=== PATIENT | female | born 1975 | race Caucasian/White ===

== ENCOUNTER → 2020-12-02 | Outpatient (CLI) | payer MEDICARE, OTHER ==
[~2020-12-02] MED LIST: ABILIFY10 MG PO; ALBUTEROL2.5 MG/3 M INH; ALLERGY RELIEF10 M1 PO; ALPHA LIPOIC A600 MG PO; BACTROBAN OINT22 GM EXT; BUDESONIDE-FO10.2 G1 INH; BUPRENORPHIN-N1 EACH SL; C COMPLEX PO; CEPHALEXIN500 M1 PO; DAILY MULTIPLE1 EAC1 PO; DOXYCYCLINE HY100 M2 PO; GABAPENTIN300 MG PO; LANTUS100 UNIT/1 SQ; LEVOTHYROXINE25 MC1 PO; LIPITOR40 MG PO; OMNICEF 300 MG300 MG PO; POTASSIUM PO; PROAIR HFA8.5 GM INH; SERTRALINE HCL100 MG PO; SYNTHROID200 MCG PO; TRULICITY0.75 MG/0. SQ; VENTOLIN HFA 66.7 GM INH; VITAMIN B PO; VITAMIN D PO; ZANAFLEX 4 MG TA4 MG PO; [UNRECOGNIZED DRUG - CODE] SQ
== END ==
LOC: ECHO 10:00 → NM 13:00
DX: R06.02 Shortness of breath (principal)
CPT/HCPCS: ECHO; 78452; 93017; 93306; A9502; J2785

== ENCOUNTER → 2020-12-03 | Outpatient (CLI) | payer MEDICARE, OTHER | LOC: NM 12:45 | DX: R06.02 Shortness of breath (principal) | CPT/HCPCS: A9502 ==

== ENCOUNTER → 2020-12-04 | Outpatient (CLI) | payer MEDICARE, OTHER | LOC: EXRD 14:39 | DX: M25.561 Pain in right knee (principal); M17.11 Unilateral primary osteoarthritis, right knee | CPT/HCPCS: 73564 ==

== ENCOUNTER → 2020-12-31 | Outpatient (CLI) | payer MEDICARE, OTHER | END | disposition home or self-care (01) | LOC: CATH 07:19 | DX: I25.119 Atherosclerotic heart disease of native coronary artery with unspecified angina pectoris (principal); I11.0 Hypertensive heart disease with heart failure; I50.9 Heart failure, unspecified; E11.9 Type 2 diabetes mellitus without complications; F17.210 Nicotine dependence, cigarettes, uncomplicated; J43.9 Emphysema, unspecified; R94.39 Abnormal result of other cardiovascular function study; K76.0 Fatty (change of) liver, not elsewhere classified; C53.9 Malignant neoplasm of cervix uteri, unspecified; F41.8 Other specified anxiety disorders; D64.9 Anemia, unspecified; M54.9 Dorsalgia, unspecified; J45.909 Unspecified asthma, uncomplicated; I82.4Z1 Acute embolism and thrombosis of unspecified deep veins of right distal lower extremity; I73.9 Peripheral vascular disease, unspecified; I21.9 Acute myocardial infarction, unspecified; M19.90 Unspecified osteoarthritis, unspecified site; G89.29 Other chronic pain; F41.0 Panic disorder [episodic paroxysmal anxiety]; Z20.822 Contact with and (suspected) exposure to COVID-19; Z79.4 Long term (current) use of insulin; Z79.899 Other long term (current) drug therapy; Z88.2 Allergy status to sulfonamides; Z80.9 Family history of malignant neoplasm, unspecified; Z83.3 Family history of diabetes mellitus; Z82.49 Family history of ischemic heart disease and other diseases of the circulatory system; Z83.6 Family history of other diseases of the respiratory system | CPT/HCPCS: 82962; 87635; 93005; 99152; 99153; C1769; C1894; J1644; J2250; J3010; J7030; Q9967 ==

== ENCOUNTER → 2021-04-13 | Outpatient (CLI) | payer MEDICARE, OTHER | LOC: KOH-I 08:43 | DX: M25.511 Pain in right shoulder (principal); R93.7 Abnormal findings on diagnostic imaging of other parts of musculoskeletal system | CPT/HCPCS: 73030 ==

== ENCOUNTER 2021-05-28 21:35 | Emergency (ER) | payer MEDICARE, OTHER ==
[~2021-05-28 21:35] MED LIST changes: -BACTROBAN OINT22 GM EXT; -CEPHALEXIN500 M1 PO
[2021-05-28 23:25] LABS: HEMOGLOBIN 13.9 gm/dl (12.3-15.3); RED BLOOD COUNT 4.41 M/UL (4.00-5.10); WHITE BLOOD COUNT 8.5 K/UL (4.5-11.0)
[2021-05-28 23:41] LABS: BUN/CREATININE RATIO 24 (0-10)
[2021-05-28] MEDS ORDERED: DOXYCYCLINE HY100 M2 PO (23:50)
[2021-05-28] MEDS ORDERED: CEPHALEXIN500 M1 PO (23:50)
[2021-05-28] MEDS ORDERED: BACTROBAN OINT22 GM EXT (23:50)
== END 2021-05-29 00:01 | disposition home or self-care (01) ==
LOC: ER1 21:35
PROVIDERS: Physician Assistant Medical
DX: L98.499 Non-pressure chronic ulcer of skin of other sites with unspecified severity (principal); F19.90 Other psychoactive substance use, unspecified, uncomplicated; E11.9 Type 2 diabetes mellitus without complications; J44.9 Chronic obstructive pulmonary disease, unspecified; E03.9 Hypothyroidism, unspecified; I50.9 Heart failure, unspecified; F17.210 Nicotine dependence, cigarettes, uncomplicated; Z88.2 Allergy status to sulfonamides; Z79.4 Long term (current) use of insulin
CPT/HCPCS: 80053; 83605; 85025; 87040; 87070; 87205; 99283; Q9967

== ENCOUNTER → 2021-06-26 | Outpatient (CLI) | payer MEDICARE, OTHER ==
[~2021-06-26] MED LIST changes: +BACTROBAN OINT22 GM EXT; +CEPHALEXIN500 M1 PO
[2021-06-26 15:32] LABS: HEMOGLOBIN 14.3 gm/dl (12.3-15.3); RED BLOOD COUNT 4.51 M/UL (4.00-5.10); WHITE BLOOD COUNT 6.7 K/UL (4.5-11.0)
[2021-06-26 16:10] LABS: BUN/CREATININE RATIO 12 (0-10)
== END ==
LOC: LAB 14:01
PROVIDERS: Physician Assistant
DX: M25.511 Pain in right shoulder (principal); I10 Essential (primary) hypertension; E11.42 Type 2 diabetes mellitus with diabetic polyneuropathy; E55.9 Vitamin D deficiency, unspecified; E78.5 Hyperlipidemia, unspecified; E03.9 Hypothyroidism, unspecified
CPT/HCPCS: 36415; 73030; 80053; 80061; 83036; 84439; 84443; 85025

== ENCOUNTER 2021-09-14 21:02 | Inpatient (IN) | payer MEDICARE, OTHER ==
[~2021-09-14] VITALS: Ht 170.2 cm; Wt 178.3 kg
[2021-09-14 21:21] LABS: HEMOGLOBIN 13.9 gm/dl (12.3-15.3); RED BLOOD COUNT 4.46 M/UL (4.00-5.10); WHITE BLOOD COUNT 5.3 K/UL (4.5-11.0)
[2021-09-14 22:19] LABS: BUN/CREATININE RATIO 17 (0-10)
[2021-09-15 01:21] LABS: ADENOVIRUS F 40/41 Not Detected (Negative); ASTROVIRUS Not Detected (Negative); CAMPYLOBACTER Not Detected (Negative); CLOSTRIDIUM DIFFICILE TOX A/B Not Detected (Negative); CRYPTOSPORIDIUM Not Detected (Negative); E.COLI 0157 Not Detected (Negative); ENTAMOEBA HISTOLYTICA Not Detected (Negative); ENTEROAGGREGATIVE E.COLI (EAEC Not Detected (Negative); ENTEROPATHOGENIC E.COLI (EPEC) Not Detected (Negative); ENTEROTOXIGENIC E.COLI (ETEC) Not Detected (Negative); GIARDIA LAMBLIA Not Detected (Negative); NOROVIRUS GI/GII Not Detected (Negative); PLESIOMONAS SHIGELLOIDES Not Detected (Negative); ROTOVIRUS A Not Detected (Negative); SALMONELLA Not Detected (Negative); SAPOVIRUS Not Detected (Negative); SHIG/ENTEROINVAS.ECOLI (EIEC) Not Detected (Negative); SHIGA-LIK TOX.PRO.E.COLI (STEC Not Detected (Negative); VIBRIO Not Detected (Negative); VIBRIO CHOLERAE Not Detected (Negative); YERSINIA ENTEROCOLITICA Not Detected (Negative)
[2021-09-15 05:43] LABS: HEMOGLOBIN 11.5 gm/dl (12.3-15.3); RED BLOOD COUNT 3.85 M/UL (4.00-5.10); WHITE BLOOD COUNT 5.4 K/UL (4.5-11.0)
[2021-09-15 09:27] LABS: ACINETOBACTER BAUMANNII Not Detected (Negative); CANDIDA ALBICANS Not Detected (Negative); CANDIDA KRUSEI Not Detected (Negative); CANDIDA TROPICALIS Not Detected (Negative); ENTEROCOCCUS Not Detected (Negative); HAEMOPHILUS INFLUENZAE Not Detected (Negative); KLEBSIELLA OXYTOCA Not Detected (Negative); KLEBSIELLA PNEUMONIAE Not Detected (Negative); KPC-CARBAPENEM-RESISTANCE GENE Not Detected (Negative); PROTEUS Not Detected (Negative); PSEUDOMONAS AERUGINOSA Not Detected (Negative); SERRATIA MARCESANS Not Detected (Negative); STAPHYLOCOCCUS Not Detected (Negative); STAPHYLOCOCCUS AUREUS Not Detected (Negative); STREP AGALACTIAE (GROUP B) Not Detected (Negative); STREP PYOGENES (GROUP A) Not Detected (Negative); STREPTOCOCCUS Not Detected (Negative); mecA (METHICILLIN RESIST GENE Not Detected (Negative); vanA/B (VANCOMYCIN RESIST GENE Not Detected (Negative)
[2021-09-15 09:32] LABS: ESCHERICHIA COLI DETECTED (Negative)
[2021-09-16 06:26] LABS: HEMOGLOBIN 11.3 gm/dl (12.3-15.3); RED BLOOD COUNT 3.67 M/UL (4.00-5.10)
[2021-09-16 07:16] LABS: WHITE BLOOD COUNT 9.5 K/UL (4.5-11.0)
[2021-09-17 07:41] LABS: HEMOGLOBIN 10.6 gm/dl (12.3-15.3); RED BLOOD COUNT 3.58 M/UL (4.00-5.10); WHITE BLOOD COUNT 11.7 K/UL (4.5-11.0)
[2021-09-18 07:09] LABS: HEMOGLOBIN 12.5 gm/dl (12.3-15.3)
[2021-09-18 07:37] LABS: RED BLOOD COUNT 4.07 M/UL (4.00-5.10)
[2021-09-18 17:08] LABS: HEPARIN INDUCED PLATELET AB 0.134 OD (0.000-0.400)
[2021-09-19 09:13] LABS: COMPLEMENT C3, SERUM 114 mg/dL (82-167); COMPLEMENT C4, SERUM 28 mg/dL (12-38)
[2021-09-19 11:13] LABS: HBSAG SCREEN Negative (Negative); HEP B CORE AB, TOT Negative (Negative); HEP C VIRUS AB 4.9 (0.0-0.9)
--- NOTE | 2021-09-19 12:47 | NUR ---
1215- NOTIFIED DR MERA OF LAB UNABLE TO OBTAIN LABS. NEW ORDER FOR PICC LINE PLACEMENT.
[2021-09-19 14:06] LABS: WHITE BLOOD COUNT 9.5 K/UL (4.5-11.0)
[2021-09-19 14:11] LABS: HEMOGLOBIN 9.6 gm/dl (12.3-15.3); RED BLOOD COUNT 3.16 M/UL (4.00-5.10)
[2021-09-19 15:08] LABS: ATYPICAL PANCA <1:20 titer (Neg:<1:20); CYTOPLASMIC (C-ANCA) <1:20 titer (Neg:<1:20); PERINUCLEAR (P-ANCA) <1:20 titer (Neg:<1:20)
--- NOTE | 2021-09-19 18:27 | NUR ---
1824- CALLED DR HILLIARD TO CLARIFY IV FLUIDS. STATED TO DC FLUIDS AT THIS TIME
[2021-09-20 09:31] LABS: HEMOGLOBIN 10.4 gm/dl (12.3-15.3); RED BLOOD COUNT 3.41 M/UL (4.00-5.10); WHITE BLOOD COUNT 13.5 K/UL (4.5-11.0)
[2021-09-21 06:21] LABS: HEMOGLOBIN 10.8 gm/dl (12.3-15.3); RED BLOOD COUNT 3.55 M/UL (4.00-5.10); WHITE BLOOD COUNT 12.7 K/UL (4.5-11.0)
[2021-09-21 13:09] LABS: ANTICHROMATIN ANTIBODIES <0.2 AI (0.0-0.9)
[2021-09-21 13:09] LABS: ANTI-DSDNA ANTIBODIES <1 IU/mL (0-9)
[2021-09-21 16:10] LABS: A/G RATIO 0.9 (0.7-1.7); ALBUMIN 2.8 g/dL (2.9-4.4); ALPHA-1-GLOBULIN 0.5 g/dL (0.0-0.4); ALPHA-2-GLOBULIN 1.1 g/dL (0.4-1.0); BETA GLOBULIN 0.9 g/dL (0.7-1.3); GLOBULIN, TOTAL 3.5 g/dL (2.2-3.9); IMMUNOGLOBULIN A, QN, SERUM 213 mg/dL (87-352); IMMUNOGLOBULIN G, QN, SERUM 853 mg/dL (586-1602); IMMUNOGLOBULIN M, QN, SERUM 217 mg/dL (26-217); M-SPIKE Not Observed g/dL (Not Observed); PROTEIN, TOTAL, SERUM 6.3 g/dL (6.0-8.5)
[2021-09-21 17:10] LABS: HAPTOGLOBIN 335 mg/dL (42-296)
[2021-09-22 10:11] LABS: HEMOGLOBIN 10.6 gm/dl (12.3-15.3); RED BLOOD COUNT 3.59 M/UL (4.00-5.10); WHITE BLOOD COUNT 12.1 K/UL (4.5-11.0)
[2021-09-23 06:27] LABS: HEMOGLOBIN 10.2 gm/dl (12.3-15.3); RED BLOOD COUNT 3.46 M/UL (4.00-5.10)
[2021-09-23] MEDS ORDERED: ROCEPHIN IM/I2000 MG IV (11:33)
[2021-09-23] MEDS ORDERED: LISINOPRIL5 MG PO (14:03)
[2021-09-23] MEDS ORDERED: NIFEDIPINE ER90 M1 PO (14:03)
[2021-09-23] MEDS ORDERED: SPIRIVA HANDIH18 MCG INH (14:03)
[2021-09-23] MEDS ORDERED: IPRAT-ALBUT 0.5-3 ML INH (14:03)
[2021-09-23] MEDS ORDERED: DEX4 GLUCOSE4 GM PO (14:32)
[2021-09-23] MEDS ORDERED: LOPRESSOR 25 MG25 MG PO (14:32)
[2021-09-23] MEDS ORDERED: LACTINEX TABLET1 EA PO (14:32)
--- NOTE | 2021-09-23 16:16 | NUR ---
UPON DISCHARGE PATIENT STATES SHE DID NOT BRING HER HOME OXYGEN TANK WITH HER. PATIENT REFUSES TO WAIT ON DELIVERY OF O2 TANK FOR TRANSPORT HOME. SHE STATES SHE ONLY LIVES 2 MILES AWAY, AND SHE FEELS SHE WILL BE FINE WITHOUT OXYGEN. EDUCATED PATIENT ON RISKS.
[2021-09-25 01:09] LABS: ADAMTS13 ACTIVITY 47.9 % (>66.8)
[2021-09-25 08:13] LABS: (LD) FRACTION 1 19 % (17-32); (LD) FRACTION 2 38 % (25-40); (LD) FRACTION 3 21 % (17-27); (LD) FRACTION 4 12 % (5-13); (LD) FRACTION 5 10 % (4-20); CK-BB 58 % (0); CK-MB 0 % (0-3); CK-MM 42 % (97-100); LDH 428 IU/L (119-226); MACRO TYPE 1 0 % (Not Observed); MACRO TYPE 2 0 % (Not Observed)
== END 2021-09-23 16:06 | disposition home or self-care (01) | DRG 871 ==
LOC: ER1 21:02 → MED SURG 4 23:52 → CDU 23:52 → MED SURG 4 09-15 05:06
PROVIDERS: Emergency Medicine; Internal Medicine; Internal Medicine Nephrology; Internal Medicine Pulmonary Disease; ADMIT Internal Medicine
DX: A41.51 Sepsis due to Escherichia coli [E. coli] (principal); J96.21 Acute and chronic respiratory failure with hypoxia; M31.19 Other thrombotic microangiopathy; N17.9 Acute kidney failure, unspecified; E87.1 Hypo-osmolality and hyponatremia; J44.1 Chronic obstructive pulmonary disease with (acute) exacerbation; Z20.822 Contact with and (suspected) exposure to COVID-19; J84.9 Interstitial pulmonary disease, unspecified; N30.00 Acute cystitis without hematuria; E66.2 Morbid (severe) obesity with alveolar hypoventilation; R04.2 Hemoptysis; Z68.44 Body mass index [BMI] 60.0-69.9, adult; F17.210 Nicotine dependence, cigarettes, uncomplicated; R65.20 Severe sepsis without septic shock; E86.0 Dehydration; K52.9 Noninfective gastroenteritis and colitis, unspecified; F41.9 Anxiety disorder, unspecified; E87.5 Hyperkalemia; F32.A Depression, unspecified; E11.65 Type 2 diabetes mellitus with hyperglycemia; B19.20 Unspecified viral hepatitis C without hepatic coma; E03.9 Hypothyroidism, unspecified; I11.0 Hypertensive heart disease with heart failure; I50.9 Heart failure, unspecified; Z90.710 Acquired absence of both cervix and uterus; Z90.89 Acquired absence of other organs; Z98.890 Other specified postprocedural states; Z82.49 Family history of ischemic heart disease and other diseases of the circulatory system; Z88.2 Allergy status to sulfonamides; Z83.3 Family history of diabetes mellitus; Z99.81 Dependence on supplemental oxygen; Z80.51 Family history of malignant neoplasm of kidney; Z80.0 Family history of malignant neoplasm of digestive organs; Z88.5 Allergy status to narcotic agent; I25.2 Old myocardial infarction; Z79.4 Long term (current) use of insulin; Z79.899 Other long term (current) drug therapy
CPT/HCPCS: ECHO; 36415; 36600; 70450; 71045; 71046; 71250; 80048; 80053; 80202; 81001; 82436; 82533; 82550; 82552; 82553; 82570; 82784; 82803; 82962; 83010; 83036; 83520; 83605; 83615; 83625; 83735; 83874; 83880; 83883; 84133; 84155; 84156; 84165; 84300; 84484; 85025; 85027; 85384; 85397; 85610; 85730; 86038; 86160; 86162; 86225; 86256; 86334; 86704; 86706; 86708; 86803; 87040; 87077; 87086; 87150; 87186; 87340; 87507; 87521; 89050; 90686; 93005; 93306; 94640; 94660; 94664; 94760; 96374; 96375; 97110-GP-CQ; 97116-GP-CQ; 97162; 97166; 97530-GP-CQ; 97535; 99285; G0008; G0378; J0696; J1100; J2185; J2405; J2920; J2930; J3370; J3486; J7030; J7050; J7070; P9047; U0002

== ENCOUNTER 2021-09-26 15:43 | Emergency (ER) | payer MEDICARE, OTHER ==
[~2021-09-26 15:43] MED LIST changes: +DEX4 GLUCOSE4 GM PO; +IPRAT-ALBUT 0.5-3 ML INH; +LACTINEX TABLET1 EA PO; +LISINOPRIL5 MG PO; +LOPRESSOR 25 MG25 MG PO; +NIFEDIPINE ER90 M1 PO; +ROCEPHIN IM/I2000 MG IV; +SPIRIVA HANDIH18 MCG INH
== END 2021-09-26 16:06 | disposition home or self-care (01) ==
LOC: ER1 15:43
DX: Z45.2 Encounter for adjustment and management of vascular access device (principal); E11.9 Type 2 diabetes mellitus without complications; I10 Essential (primary) hypertension; Z88.2 Allergy status to sulfonamides
CPT/HCPCS: 99283

== ENCOUNTER 2021-09-27 14:45 | Emergency (ER) | payer MEDICARE, OTHER | END 2021-09-27 15:26 | disposition home or self-care (01) | LOC: ER1 14:45 | DX: T80.89XA Other complications following infusion, transfusion and therapeutic injection, initial encounter (principal) | CPT/HCPCS: 99283 ==

== ENCOUNTER → 2021-10-08 | Outpatient (CLI) | payer MEDICARE, OTHER | LOC: EXRD 13:25 | DX: J18.9 Pneumonia, unspecified organism (principal) | CPT/HCPCS: 71046 ==

== ENCOUNTER → 2021-10-26 | Outpatient (CLI) | payer MEDICARE, OTHER | LOC: HEART 5 10:07 | DX: J44.9 Chronic obstructive pulmonary disease, unspecified (principal); R91.8 Other nonspecific abnormal finding of lung field | CPT/HCPCS: 71046; 94060; 94729 ==

== ENCOUNTER → 2022-01-18 | Outpatient (CLI) | payer MEDICARE, OTHER | LOC: KOH-I 11-05 13:00 | DX: R91.1 Solitary pulmonary nodule (principal); R06.02 Shortness of breath; R91.8 Other nonspecific abnormal finding of lung field; Z87.891 Personal history of nicotine dependence | CPT/HCPCS: 71250 ==